=== PATIENT | male | born 1960 | race Caucasian/White ===

== ENCOUNTER → 2024-06-22 06:46 | Outpatient (REF) | payer MEDICARE, OTHER, SELFPAY | LOC: MRI 06:46 | PROVIDERS: ATTENDING PHYSICIAN Family Medicine | DX: M54.32 Sciatica, left side (principal) | CPT/HCPCS: 72148 ==

== ENCOUNTER 2024-11-27 11:41 | Inpatient (IN) | payer MEDICARE, OTHER, SELFPAY ==
[2024-11-27] VITALS (13 sets, daily range): BP systolic 106–156; BP diastolic 65–90; BMI 29.1
[2024-11-27] MEDS: CELEBREX 200 MG PO (12:19)
[2024-11-27] MEDS: TYLENOL 1000 MG PO ×2 (12:19→21:00)
[2024-11-27] MEDS: EMEND 40 MG PO (12:39)
[2024-11-27] MEDS: NORMOSOL-R/PLASMALYTE-A 1000 IV (12:40)
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
--- NOTE | 2024-11-27 17:58 | OR.RPT ---
Operative Report
Operative Report
Date of Surgery 11/27/2024
Surgeon: Rm Skinner
INFORMATION ASSURANCE OFFICER: Leda Pan PA-C served as outreach assistant for this procedure as no qualified resident or fellow was able to be identified
PREOPERATIVE DIAGNOSES:
1. Multilevel lumbar spinal stenosis L2-5
2. Degenerative spondylolisthesis at L4-5.
3. Lumbar spondylosis.
POSTOPERATIVE DIAGNOSES:
Same
PROCEDURE:
1. Posterior spinal decompression consisting of laminectomy at L2, L3, L4, L5.
2. Posterior spinal arthrodesis with local autograft (same incision) and allograft (DBM) L4 - L5.
3. Posterior non segmental instrumentation L4 and L5 (Globus).
4. Transforaminal interbody fusion L4-5 with titanium cage insertion
ANESTHESIA: General endotracheal.
ESTIMATED BLOOD LOSS: 200 mL
COMPLICATIONS: None
DISPOSITION: Stable, extubated to PACU.
INDICATION FOR PROCEDURE: This patient is a 64 year old male who comes in with a chief complaint of low back pain with pain radiating down both legs (L>R). The ability to walk and the increased pain has been quite severe over the past year. He
states hecan only walk about maybe 200 feet. The pain typically is in the back radiating into the buttocks, down the posterior thighs, at times into the calves. He has had physical therapy for this, it has not helped,along with activity
modification. Radiographs reveal severe spondylosis from L3 to L5, there is L4-L5 spondylolisthesis. MRI shows multilevel stenosis, most severe at L2-3, L3-4 and 4-L5 due to ligamentum flavum hypertrophy and facet arthropathy.
As he had failed conservative measures of activity modification, oral medications, injection-type therapy, and continued having subjective, objective and corroborative imaging evidence of neurogenic claudication and axial low back pain with
multilevel spinal stenosis and spondylolisthesis, surgical treatment was offered. The patient understood the benefits, alternatives and risks of the procedure with risks including but not limited to risk of anesthesia, infection, nerve damage, blood
vessel damage, dural tear, blindness, need for further surgery, failure of fusion, failure of instrumentation, failure to relieve symptoms, adjacent level problems. He elected to proceed after undergoing preoperative medical clearance.
DESCRIPTION OF PROCEDURE: The patient was identified in the preoperative holding area. The site of surgery and consent verified with the patient. She was then brought to the Operating Room by the Anesthesia and Orthopedic Services. General
anesthesia was administered. The patient was intubated without difficulty. SOILA and SCD stockings were placed for mechanical DVT prophylaxis as well as a sterilely inserted Beck catheter. @CAPHE@ was then positioned prone onto a Blaine table with
bony prominences well padded. Abdomen was hanging free. @CAPHIS@ back was prepped and draped in the usual sterile standard fashion. A hard stop surgical timeout performed with all members of the Operating Room staff, and 1 gram of IV Ancef given
prior to surgical start.
A midline skin incision was then made over the presumed L2, L3, L4 and L5 spinous processes down through the skin with a knife Bovie cautery down through the lumbodorsal fascia. Hemostasis was achieved. Deep dissection was taken of the bilateral
hemilamina of the presumed L3 to L5 levels. At this point, intraoperative fluoroscopy was used to confirm exposure of the intended levels. Once this was confirmed, further lateral dissection was taken out to the transverse processes of L4 to L5,
again with excellent hemostasis achieved and deep self-retraining retractors placed.
Decompression was then started, first by removal of the spinous processes with the spinous process cutter. A Leksell rongeur used to thin down the lamina and all this bone used harvested local autograft. A 3 mm neural efrain was then used to thin down
the laminae and further down to the level of the ligamentum flavum from L3 and L5. At each respective level the canal space was entered with a use of a microcurette followed by a #2 and a #3 Kerrison rongeur. A central laminectomy was performed from
L5 [address] up to L2.
At this point, bilateral lateral recess decompression was performed at the L2-3,L3-4 and L4-5 levels with a Linnette elevator was used to protect the neural elements at all times. The stenosis was most severe particularly at the L4-5 and an osteotome
was used to perform inferior facetectomy at the L4-5 level to retail helper in the decompression. Following the decompression, the neural elements were noted to reconstitute from the prior areas of compression and neuromonitoring was stable throughout
the entire decompressive procedure.
Instrumentation was then performed consisting of bilateral pedicle screws from L4 to L5. Surgical technique included a starter point with a neural efrain based on anatomic landmarks of the transverse process in the respective pars. A pedicle probe was
then used to create a tract down through the pedicle. Pedicle markers were then used to confirm on AP and lateral fluoroscopic imaging adequate starting point trajectory of these screws. Screws placed and all with excellent purchase and checked on
AP and lateral fluoroscopic imaging to ensure no breaches.
Attention was then turned to the left 4-5foramen. Bipolar cautery used to create excellent hemostasis of the epidural venous plexus. This allowed visualization of the L4-5 disc as well as the traversing L5 root and the exiting L4 root. Care was
taken to preserve the neural elements and a discectomy was performed first with annulotomy with a 15 blade followed by upsizing trial paddle sam and paddle distractors. Bilateral and superior inferior endplates were cleaned of cartilaginous
tissue with straight left and right going angled curettes, as well as straight and up-biting pituitary to remove anymore disc material.
Trial cages were then placed, checked on AP and lateral fluoroscopic imaging to ensure appropriate selection of side. The actual cage was then selected in this evacuated disc space, autograft and allograft packed anteriorly into the disc space,
followed by the cage, which was also packed with bone graft material. The cage was then placed across the midline and expanded until its final torque.
A well-contoured in length sruthi was then placed down on either side, set down with the appropriate tightening instrument. Distraction applied to first to the construct to allow final decompression and checking of the bilateral lateral recess
decompression at L2-3 L3-4 and L4-5 levels, which was sufficient as all traversing nerve roots at all the levels were noted to be free and mobile following the decompression. The efrain was used to decorticate lateral surfaces and transverse
processes between L4 and L5 and remaining autograft and allograft packed here for fusion purposes. Compression was then applied back onto the fusion construct and set screws set down with the appropriate final induction coordination engineer. The wound was then irrigated
with a liter of normal saline, followed by placement of a deep Hemovac drain.
The wound was then closed in a sequential fashion with 0 Vicryl, 2-0 Vicryl, and 3-0 Monocryl for the skin. A dry, sterile dressing was then applied. He was flipped back over supine on the hospital table, extubated without difficulty, had purposeful
movement of all four extremities prior to leaving the Operating Room.
I attest I was present for and performed all jiang and critical aspects of the procedure.
--- NOTE | 2024-11-27 18:46 | SUR.PHASEI ---
Rec'd with HOB mid fowlers, too sleepy to orient at present Hemovac compressed with scant dark seriosnag drainage, hicks to bsd cl yellow urine
--- NOTE | 2024-11-27 19:12 | SUR.PHASEI ---
Arouses with stimuli oriented x 3 by RN, reassured
--- NOTE | 2024-11-27 19:19 | SUR.PHASEI ---
lip care given, very sleepy, vss
--- NOTE | 2024-11-27 19:32 | SUR.PHASEI ---
Remains sleepy, encouraged deep breaths, quickly falls back to sleep, unable to maint SAO2 on RA, c/o discomfort in back and legs, repositioned log rolled on L side, prop. with pillow and pillow between legs, gabby x 5 min
--- NOTE | 2024-11-27 19:49 | SUR.PHASEI ---
More arousable,vss, no c/o at present
--- NOTE | 2024-11-27 20:13 | SUR.PHASEI ---
roberto, no c/o Spoke with
[2024-11-27] MEDS: SENOKOT 17.2 MG PO (21:00)
[2024-11-27] MEDS: LYRICA 75 MG PO (21:00)
[2024-11-27] MEDS: COLACE 100 MG PO (21:09)
[2024-11-27] MEDS: FLOMAX 0.4 MG PO (21:09)
[2024-11-27] MEDS: PEPCID 20 MG PO (21:09)
[2024-11-27] MEDS: MILK OF MAGNESIA 30 ML PO (21:11)
[2024-11-27] MEDS: NORMOSOL-R/PLASMALYTE-A IV (23:11)
--- NOTE | 2024-11-27 23:14 | TRANSFER ---
Received report from RECORDS OFFICER Sivan. Pt received in bed at 2030 s/p L2-5 fusion and L4-5 w/ TLIF. Pt drowsy but arousable to verbal. Lumbar inc w post op dressing CDI, Hemovas intact w sanguinous drainage. FC draining yellow urine. Pt was able to
move all extremities w/o issues. VSS. Call cope within reach, bed in lowest position. Spouse at bedside.
[2024-11-27] MEDS: ROXICODONE 10 MG PO (23:50)
[2024-11-27] MEDS: ANCEF 5 IV (23:51)
[2024-11-28] VITALS (8 sets, daily range): BP systolic 91–142; BP diastolic 59–74; PULSE 9–79; O2SAT 99
[2024-11-28] MEDS: TYLENOL 1000 MG PO ×2 (02:55→08:14)
[2024-11-28] MEDS: NORMOSOL-R/PLASMALYTE-A 1000 IV ×2 (02:55→12:56)
[2024-11-28] MEDS: NORMOSOL-R/PLASMALYTE-A IV (05:33)
[2024-11-28] MEDS: ROXICODONE 10 MG PO (06:25)
--- NOTE | 2024-11-28 08:00 | W.PN.SP ---
Today's Communication / Plan
-
Out of bed ad jeromy with physical therapy for activity training and dispo planning likely home with services.
Check CBC today
Standing lumbar radiograph AP and Lateral before discharge
Continue hemovac to self suction until <60cc/shift
Assessment / Plan
-
POD#1 s/p L2-5 laminectomy, fusion with TLIF L4-5 as expected.
Subjective / Objective
Subjective Data
Patient has movement related incisional pain and developed a migraine headache overnight, which is something that he had related to a remote head trauma. He treats the migraines usually with Excedrin Migraine.
Objective Data
Vital Signs
Temp Pulse Resp BP Pulse Ox
97.6 F 83 16 91/59 97
11/28/24 07:20 11/28/24 07:20 11/28/24 07:20 11/28/24 07:20 11/28/24 07:20
Intake and Output
11/27/24 11/28/24 11/29/24
06:59 06:59 06:59
Intake Total 1070 / 1070
Output Total 1035 / 1035
Balance 35 / 35
Intake:
Oral fluids 720 / 720
IV fluids (Total) 350 / 350
normosol 50 / 50
Output:
Drain Output (Total) 560 / 560
Middle Abdomen Hemovac 560 / 560
Urine, Beck 475 / 475
Physical Exam
-
NAD, AAOx3
5/5 bilateral Q/IP/EHL/TA/GSC
SILT L2-S1
w/wp
[2024-11-28] MEDS: ANCEF 5 IV (08:13)
[2024-11-28] MEDS: COLACE 100 MG PO ×2 (08:13→20:02)
[2024-11-28] MEDS: ZOFRAN 4 MG IV (08:13)
[2024-11-28] MEDS: SENOKOT 17.2 MG PO ×2 (08:13→20:02)
[2024-11-28] MEDS: VITAMIN C 500 MG PO (08:14)
[2024-11-28] MEDS: FLOMAX 0.4 MG PO (08:14)
[2024-11-28] MEDS: LIPITOR 40 MG PO (08:15)
[2024-11-28] MEDS: LYRICA 75 MG PO (08:15)
[2024-11-28 08:54] LABS: Hematocrit 30.5 % (39.0-52.0); Hemoglobin 10.5 g/dL (13.0-18.0)
[2024-11-28 09:29] LABS: Blood Urea Nitrogen 19 mg/dl (9-20); Calcium 7.9 mg/dl (8.4-10.2); Carbon Dioxide 24 mmol/L (22-30); Chloride 104 mmol/L (98-107); Estimated Creatinine Clearance 89 ml/min; Glucose 130 mg/dl (70-99); Potassium 4.2 mmol/L (3.5-5.1); Sodium 137 mmol/L (135-145); eGFR > 60.00
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
--- NOTE | 2024-11-28 10:26 | CM ---
Patient seen at bedside - fabiola d/c by nurse, has hemovac
POD#1 s/p L2-5 laminectomy, fusion with TLIF L4-5
IA completed
CM consult completed. dispo planning/VN
Referral for [facility] entered
Lives with in a 2 story home, 1 step to enter, flight to second floor
PLOF: indepdendent used cane
DME: Cane walker
denies insecurities
PCP: Dr. Ferreira
Pharmacy: [facility] [place]
PLAN: home with [facility]
[2024-11-28] MEDS: FIORICET 1 TAB PO ×2 (11:34→20:06)
--- NOTE | 2024-11-28 12:51 | VNURNOTE ---
Provider Contracting Consultant met with patient and at bedside to discuss [facility] nurse/therapy, visits, schedule and homebound status. Patient is agreeable and understands that visits at home will be 2-3 x per week to assess and teach medical management.
[facility] brochure provided with contact information. Patient is aware that [facility] will contact them for start of care in 1-2 days after discharge from .
[facility] referral completed in [facility].
[2024-11-28] MEDS: ROXICODONE 5 MG PO (13:01)
[2024-11-28] MEDS: COMPAZINE 5 MG PO ×2 (15:49→21:37)
[2024-11-28] MEDS: TYLENOL PO ×2 (15:50→20:07)
[2024-11-28] MEDS: NSS (PRESERVATIVE FREE) 10 ML IV (15:50)
[2024-11-28] MEDS: DECADRON 4 MG IV (15:50)
[2024-11-28] MEDS: PROTONIX IV 40 MG IV (15:50)
[2024-11-28] MEDS: PEPCID 20 MG PO (21:37)
[2024-11-28] MEDS: MILK OF MAGNESIA 30 ML PO (21:37)
[2024-11-29] MEDS: TYLENOL PO (03:00)
[2024-11-29 07:05] VITALS: BP 133/75
[2024-11-29] MEDS: COMPAZINE 5 MG PO (08:19)
[2024-11-29] MEDS: COLACE 100 MG PO (08:19)
[2024-11-29] MEDS: VITAMIN C 500 MG PO (08:20)
[2024-11-29] MEDS: TYLENOL 650 MG PO (08:20)
[2024-11-29] MEDS: FLOMAX 0.4 MG PO (08:20)
[2024-11-29] MEDS: LIPITOR 40 MG PO (08:20)
[2024-11-29] MEDS: SENOKOT 17.2 MG PO (08:21)
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
--- NOTE | 2024-11-29 09:52 | W.DS.TRANS ---
DC Summary - Transport Tank Technician
-
Discharge Instructions:
Sleep Apnea Risk Intermediate
Discharge Diagnosis/Procedures Lumbar stenosis with neurogenic claudication s/p
L2-L5 laminectomy and L4-L5 TLIF with Dr Skinner 02
/12/2024
Diet Regular
Activity As tolerated
Additional Activity No heavy lifting >10 lbs
Driving Restrictions Not until seen by your Dr
Bathing Restrictions OK to shower in 3 days
Other Services VN
Instructions:
Stand-Alone Forms: [facility]
Changes to Home Medications: Yes
Discharge Medications:
DC Medications w/original date entered in [facility]
ascorbic acid (vitamin C) 500 mg tablet (Vitamin C) 500 mg PO DAILY Supplement 11/23/24
aspirin 81 mg capsule 81 mg PO DAILY Blood Clot Prevention/Tx 11/23/24
atorvastatin 40 mg tablet 40 mg PO DAILY High Cholesterol 11/23/24
acetaminophen 325 mg tablet 650 mg (2 x 325 mg) PO Q6H #30 tabs 11/29/24
cvzbaktdxa-qcdbqywoltmlw-egztrqcy 50 mg-325 mg-40 mg tablet 1 tab PO Q6HPRN PRN migraines #10 tabs 11/29/24
docusate sodium 100 mg capsule 100 mg PO BID #30 caps 11/29/24
hydrochlorothiazide 25 mg tablet 25 mg PO DAILY Fluid Retention/Swelling #0 tabs 11/29/24
lisinopril 20 mg tablet 20 mg PO DAILY Blood Pressure #0 tabs 11/29/24
magnesium hydroxide 400 mg/5 mL oral suspension (Milk of Magnesia) 30 ml PO HS #3,780 mL 11/29/24
prochlorperazine maleate 5 mg tablet 5 mg PO TID PRN nausea and vomiting #30 tabs 11/29/24
sennosides 8.6 mg tablet (Addie-yolanda) 17.2 mg (2 x 8.6 mg) PO BID #30 tabs 11/29/24
tizanidine 2 mg tablet 2 mg PO Q8H PRN muscle spasms #30 tabs 11/29/24
tramadol 50 mg tablet 50 mg PO Q6HPRN PRN moderate-severe pain #30 tabs 11/29/24
Home Medication Changes
acetaminophen 325 mg tablet 650 mg (2 x 325 mg) PO Q6H #30 tabs 11/29/24
jazjfmbupz-kvcronnrwinvh-wxprphcj 50 mg-325 mg-40 mg tablet 1 tab PO Q6HPRN PRN migraines #10 tabs 11/29/24
docusate sodium 100 mg capsule 100 mg PO BID #30 caps 11/29/24
magnesium hydroxide 400 mg/5 mL oral suspension (Milk of Magnesia) 30 ml PO HS #3,780 mL 11/29/24
prochlorperazine maleate 5 mg tablet 5 mg PO TID PRN nausea and vomiting #30 tabs 11/29/24
sennosides 8.6 mg tablet (Addie-yolanda) 17.2 mg (2 x 8.6 mg) PO BID #30 tabs 11/29/24
tizanidine 2 mg tablet 2 mg PO Q8H PRN muscle spasms #30 tabs 11/29/24
tramadol 50 mg tablet 50 mg PO Q6HPRN PRN moderate-severe pain #30 tabs 11/29/24
Pending Results: No
[2024-11-29 10:00] VITALS: BP 126/81; PULSE 106
--- NOTE | 2024-11-29 11:05 | CM ---
IMM explained & signed. In chart
[facility] liaison notified. Accepted patient
PLAN: Home with [facility], to transport
[2024-11-29 12:39] VITALS: BP 141/81; PULSE 90; O2SAT 97
[2024-11-29 12:44] VITALS: BP 138/74
== END 2024-11-29 14:16 | disposition home health service (06) | DRG 451 ==
LOC: 2 SOUTH 11:41
PROVIDERS: Physician Assistant; ADMITTING PHYSICIAN Orthopaedic Surgery
PROC: 00NY0ZZ Release Lumbar Spinal Cord, Open Approach (ICD-10-PCS; 2024-11-27)
PROC: 0SG00AJ Fusion of Lumbar Vertebral Joint with Interbody Fusion Device, Posterior Approach, Anterior Column, Open Approach (ICD-10-PCS; 2024-11-27)
DX: M48.062 Spinal stenosis, lumbar region with neurogenic claudication (principal); D62 Acute posthemorrhagic anemia; M43.16 Spondylolisthesis, lumbar region; M47.816 Spondylosis without myelopathy or radiculopathy, lumbar region; G43.909 Migraine, unspecified, not intractable, without status migrainosus; I10 Essential (primary) hypertension; K59.09 Other constipation; N40.1 Benign prostatic hyperplasia with lower urinary tract symptoms; T40.2X5A Adverse effect of other opioids, initial encounter; R11.0 Nausea
CPT/HCPCS: 72100; 76000; 80048; 85014; 85018; 86850; 86900; 86901; 87070; 97162; 97165; 97530; 97535

== ENCOUNTER 2024-12-03 03:11 | Emergency (ER) | payer MEDICARE, OTHER, SELFPAY ==
[2024-12-03] VITALS (14 sets, daily range): BP systolic 135–167; BP diastolic 83–103; BMI 30.3
--- NOTE | 2024-12-03 03:27 | ED.GENMED ---
History of Present Illness
<Cody Quintana, DO - Last Filed: 12/03/24 22:44>
General
Chief Complaint: Back Pain
Source: patient, records and ambulance crew
Exam Limitations: none
Time Seen by Provider: 12/03/24 03:27
Nursing documentation reviewed up to this point in time: agreed with
History of Present Illness
History of Present Illness:
Pleasant 64-year-old male presents to the emergency department with bilateral leg swelling and tingling. He is status post lumbar spinal fusion by Dr. Skinner of [facility] orthopedics. The surgery was performed on Wednesday. Since the surgery he has not
been taking his normal medications including hydrochlorothiazide. Patient has been sleeping in a lazy boy chair. He was instructed to try to ambulate up to 5 minutes a day. He was unable to do so. He has also kept his compression stockings in
place since the surgery. His removed them yesterday and symptoms began shortly thereafter. Patient denied chest pain but states that while in the emergency department, he had a small episode of fleeting chest pain.
Vital signs are stable. Patient not hypoxic
Nursing note reviewed. I agree with nursing documentation up to this point in time.
Home Meds and allergies reviewed.
NUMBER AND COMPLEXITY OF PROBLEMS ADDRESSED AT THE ENCOUNTER
� Chronic conditions affecting care: Acute on chronic back pain, hypertension, hyperlipidemia
� Acute Exacerbation and/or Progression of Chronic Illness: Acute on chronic low back pain.
� Differential Diagnosis includes: Postoperative pain, return of chronic pain, rhabdomyolysis
AMOUNT AND/OR COMPLEXITY OF DATA TO BE REVIEWED AND ANALYZED
I performed an independent evaluation of the following and my interpretation is:
EKG: EKG which is physically scanned into the chart shows normal sinus rhythm rate 85 with normal intervals, normal axis. Right bundle branch block present. OR doubles 138 ms. No evidence of acute ischemia present. No
previous EKG available for comparison.
Pulse Ox: Not Hypoxic
Machine Umbrella Tipper: Sinus Rhythm
CT:
X-rays:
Ultrasound: Ultrasound of the bilateral lower extremities pending.
Laboratory Studies: Elevated troponin, 0.053. Repeat troponin pending for 615. proBNP is normal at 398.
Other:
Review of other/old records: Operative report by Dr. Skinner which showed multilevel lumbar spinal stenosis L2-L5, degenerative spondylolisthesis at L4-L5, moderate lumbar spondylosis. Patient underwent a posterior spinal decompression
with laminectomy at L2-3-4 and 5.'s posterior spinal arthrodesis with local autograft, posterior nonsegmental instrumentation L4-L5 and transforaminal interbody fusion L4-5.
Clinical information was obtained by an independent historian: EMS gave report
Prescriptions/Medications Considered but not given:
Further testing considered but not performed:
RISK OF COMPLICATIONS AND/OR MORBIDITY OR MORTALITY OF PATIENT MANAGEMENT
Social determinants of health affecting care: Good Social Support
Discussion with other providers: Spoke with Dr. Lindsey, orthopedics who recommended discharge with follow-up should second troponin and ultrasound negative.
Escalation of care including admission/observation vs risk of discharge considered:
CRITICAL CARE NOTE: Not applicable
Total Time (exclusive of procedures):
Update:
Past History
<Cody Quintana, - Last Filed: 12/03/24 22:44>
Past History
ED Past Medical History: GERD, HTN and Hypercholesterolemia
ED Past Surgical History: Orthopedic
Social History
Tobacco: Non-smoker
Personal:
Phy Exam
<Cody Quintana, DO - Last Filed: 12/03/24 22:44>
Physical Exam
Physical Exam:
Physical Exam
Vital signs and allergy list reviewed and agreed with.
GENERAL: Alert , in minimal apparent distress
EYE: pupils equal, EOMI, anicteric
NECK: Supple, no significant adenopathy. No masses. Trachea midline
ENT: Oropharynx is clear, mmm.
CARDIAC: Regular rate and rhythm . No M/R/G
LUNGS: Clear breath sounds bilaterally, no acute respiratory distress, no wheezes/rales/rhonchi
ABDOMEN: Soft, without focal tenderness, no r/g, no cvat. Normal BSx4q
NEUROLOGICAL: Alert and oriented, no focal neuro deficits
SKIN: Warm and dry, skin intact.
MUSCULOSKELETAL: No edema, well perfused. Moves all 4 extremities
PSYCH: Normal and appropriate interaction.
Course
<Cody Quintana, DO - Last Filed: 12/03/24 22:44>
Orders/Labs/Results
Orders:
Orders
12/03/24 03:15
Electrocardiogram (*1) Urgent
Reason for Study: Palpitations
Electrocardiogram (*1) Urgent
Reason for Study: Palpitations
12/03/24 03:16
EKG- Treatment ONCE
12/03/24 03:26
Complete Blood Count/With Diff Urgent
Comprehensive Metabolic Panel Urgent
Creatine Phosphokinase Urgent
Comment: ADD ON
NT-proBNP Urgent
PTT Urgent
Prothrombin Time Urgent
Troponin I Urgent
12/03/24 04:41
Tizanidine [Zanaflex] 2 mg PO NOW STA
Tramadol HCl [Ultram] 50 mg PO NOW STA
12/03/24 06:15
Troponin I Urgent
12/03/24 06:32
US Legs, Bilateral [US Periph Venous LOWER Ext Jacques] Urgent
Comment:
Reason For Exam: pain, swelling s/p surgery
12/03/24 06:37
Add On- LAB Urgent
Tests Added?: cpk
12/03/24 06:46
CT Chest PE Study Urgent
Comment:
Reason For Exam: chest pain, s/p surgery
12/03/24 07:45
Electrocardiogram (*1) Urgent
Reason for Study: Chest Pain
EKG- Treatment ONCE
12/03/24 10:43
Consult Cardiology [CARDIOLOGY CONSULT] Urgent
Consulting Provider: Inga Castillo
Was physician already notified: Yes
12/03/24 10:55
Atorvastatin [Lipitor] 40 mg PO NOW STA
Hydrochlorothiazide [Oretic] 25 mg PO NOW STA
Lisinopril [Zestril] 20 mg PO NOW STA
12/03/24 12:18
Tramadol HCl [Ultram] 50 mg PO NOW STA
Abnormal Lab Results
12/03/24 12/03/24
03: 06:15
RBC 3.15 L 10^6/uL
(4.70-6.10)
Hgb 9.7 L g/dL
(13.0-18.0)
Hct 28.4 L %
(39.0-52.0)
Abs Immat Gran (auto) 0.1 H 10^3/uL
(0-0.05)
Absolute Monos (auto) 1.0 H 10^3/uL
(0.1-0.6)
Immature Gran % 0.6 H %
(0-0.5)
Lymphocytes % 15.0 L %
(20.5-51.1)
Monocytes % 13.3 H %
(1.7-9.3)
Sodium 132 L mmol/L
(135-145)
Chloride 95 L mmol/L
(98-107)
Glucose 103 H mg/dl
(70-99)
Troponin I 0.053 H* ng/ml 0.065 H* ng/ml
Total Protein 6.2 L g/dl
(6.3-8.2)
12/03/24 03:26
12/03/24 03:26
Vital Signs
Initial and Last Documented VS:
Initial Vital Signs
BP Pulse Ox
160/103 96
12/03/24 03:13 12/03/24 03:13
Last Documented Vital Signs
Temp Pulse Resp BP Pulse Ox
98.2 F 90 24 150/89 97
12/03/24 10:33 12/03/24 13:55 12/03/24 13:55 12/03/24 13:55 12/03/24 13:45
<Rm Tavares, - Last Filed: 12/03/24 13:03>
Orders/Labs/Results
Orders:
Orders
12/03/24 03:15
Electrocardiogram (*1) Urgent
Reason for Study: Palpitations
Electrocardiogram (*1) Urgent
Reason for Study: Palpitations
12/03/24 03:16
EKG- Treatment ONCE
12/03/24 03:26
Complete Blood Count/With Diff Urgent
Comprehensive Metabolic Panel Urgent
Creatine Phosphokinase Urgent
Comment: ADD ON
NT-proBNP Urgent
PTT Urgent
Prothrombin Time Urgent
Troponin I Urgent
12/03/24 04:41
Tizanidine [Zanaflex] 2 mg PO NOW STA
Tramadol HCl [Ultram] 50 mg PO NOW STA
12/03/24 06:15
Troponin I Urgent
12/03/24 06:32
US Legs, Bilateral [US Periph Venous LOWER Ext Jacques] Urgent
Comment:
Reason For Exam: pain, swelling s/p surgery
12/03/24 06:37
Add On- LAB Urgent
Tests Added?: cpk
12/03/24 06:46
CT Chest PE Study Urgent
Comment:
Reason For Exam: chest pain, s/p surgery
12/03/24 07:45
Electrocardiogram (*1) Urgent
Reason for Study: Chest Pain
EKG- Treatment ONCE
12/03/24 10:43
Consult Cardiology [CARDIOLOGY CONSULT] Urgent
Consulting Provider: Inga Castillo
Was physician already notified: Yes
12/03/24 10:55
Atorvastatin [Lipitor] 40 mg PO NOW STA
Hydrochlorothiazide [Oretic] 25 mg PO NOW STA
Lisinopril [Zestril] 20 mg PO NOW STA
12/03/24 12:18
Tramadol HCl [Ultram] 50 mg PO NOW STA
Abnormal Lab Results
12/03/24 12/03/24
03: 06:15
RBC 3.15 L 10^6/uL
(4.70-6.10)
Hgb 9.7 L g/dL
(13.0-18.0)
Hct 28.4 L %
(39.0-52.0)
Abs Immat Gran (auto) 0.1 H 10^3/uL
(0-0.05)
Absolute Monos (auto) 1.0 H 10^3/uL
(0.1-0.6)
Immature Gran % 0.6 H %
(0-0.5)
Lymphocytes % 15.0 L %
(20.5-51.1)
Monocytes % 13.3 H %
(1.7-9.3)
Sodium 132 L mmol/L
(135-145)
Chloride 95 L mmol/L
(98-107)
Glucose 103 H mg/dl
(70-99)
Troponin I 0.053 H* ng/ml 0.065 H* ng/ml
Total Protein 6.2 L g/dl
(6.3-8.2)
12/03/24 03:26
12/03/24 03:26
Vital Signs
Initial and Last Documented VS:
Initial Vital Signs
BP Pulse Ox
160/103 96
02/09/25 03:13 12/03/24 03:13
Last Documented Vital Signs
Temp Pulse Resp BP Pulse Ox
98.2 F 90 24 150/89 97
12/03/24 10:33 12/03/24 13:55 12/03/24 13:55 12/03/24 13:55 12/03/24 13:45
<Cody Quintana, DO - Last Filed: 12/03/24 22:44>
*Critical Care Note
Total Time (30-74mins, 75-104mins- exclusive of procedures): Not Applicable
<Rm Tavares DO - Last Filed: 12/03/24 13:03>
Update Note
Update Note:
Patient reassessed. Presented for burning in his legs as well as swelling. Patient on my assessment denies any chest pain or shortness of breath. Feels better on my assessment. In light of his troponin seen by cardiology in the emergency
department. Cleared from a cardiac perspective as per Dr. Castillo. DVT negative. Okay for discharge
ED Attending Note
<Cody Quintana DO - Last Filed: 12/03/24 22:44>
-
Portions of this chart may have been created with voice recognition software.� Occasional wrong word or��sound alike� substitutions may have occurred due to the inherent limitations of voice recognition software.
Discharge Plan
Departure
Patient Disposition: Home (Routine Discharge)
Date of Disposition: 12/03/24
Time of Disposition: 13:02
Patient with high blood pressure during this ER visit?: Yes
Condition: Fair
Discharge Problem:
Elevated troponin, Radiculopathy
Instructions: Radiculopathy (DC)
Prescriptions:
No Action
atorvastatin 40 mg tablet
40 mg PO DAILY
ascorbic acid (vitamin C) [Vitamin C] 500 mg Tablet
500 mg PO DAILY
aspirin 81 mg Capsule
81 mg PO DAILY
Rx Instructions:
on hold until 12/02/24
prochlorperazine maleate 5 mg Tablet
5 mg PO TID PRN (Reason: nausea and vomiting) Qty: 30 0RF
docusate sodium 100 mg Capsule
100 mg PO BID Qty: 30 0RF
quoefcjxxu-xzqozfqykyfpg-umxv 50-325-40 mg Tablet
1 tab PO Q6HPRN PRN (Reason: migraines) Qty: 10 0RF
Rx Instructions:
Do NOT exceed >4000 mg of Tylenol daily while on this medication.
magnesium hydroxide [Milk of Magnesia] 400 mg/5 mL Suspension
30 ml PO HS Qty: 3780 0RF
sennosides [Addie-yolanda] 8.6 mg Tablet
17.2 mg PO BID Qty: 30 0RF
acetaminophen 325 mg Tablet
650 mg PO Q6H Qty: 30 0RF
Rx Instructions:
DO NOT exceed >4000 mg daily while taking Fioricet as needed.
tramadol 50 mg tablet
50 mg PO Q6HPRN PRN (Reason: moderate-severe pain) Qty: 30 0RF
Rx Instructions:
Dx lami. Ongoing therapy
1 tab moderate pain or 2 if pain severe
tizanidine 2 mg tablet
2 mg PO Q8H PRN (Reason: muscle spasms ) Qty: 30 0RF
Rx Instructions:
Prescribed by Halle Pan PA-C.
Caution with tramadol - can cause drowsiness.
lisinopril 20 mg tablet
20 mg PO DAILY Qty: 0 0RF
Rx Instructions:
HOLD IF systolic blood pressure <130 while on Tramadol.
hydrochlorothiazide 25 mg tablet
25 mg PO DAILY Qty: 0 0RF
Rx Instructions:
HOLD if systolic blood pressure <130 while on Tramadol.
Referrals:
Rm Skinner MD [Active] - Next open appointment
Kalia Hammond MD [Family Provider] -
Activity Restrictions/Additional Instructions:
Please follow-up with your doctor next 2 to 3 days. Please have your doctor follow-up on your results. Return immediately for chest pain, shortness of breath, fevers, leg weakness, urinary incontinence, bowel incontinence or any other concerns.
Interventions
Interventions:
*Risk Screen - Suicide Last Done: 12/03/24 14:33
*General Assessment Last Done: 12/03/24 03:18
*Neglect/Abuse Screening Last Done: 12/03/24 03:18
ED- Fall Risk Assessment Last Done: 12/03/24 14:32
*ED COVID-19 Vaccine History Last Done: 12/03/24 03:30
*Nursing Disposition Last Done: 12/03/24 14:32
ED-Musculoskeletal Assessment Last Done: 12/03/24 04:30
Discharge Date and Time
Discharge Date/Time: 12/03/24 14:33
Print Language: FIJIAN
[2024-12-03 03:49] LABS: % Basophils 0.5 % (0-2); % Eosinophils 1.7 % (0-6); % Immature Granulocytes 0.6 % (0-0.5); % Monocytes 13.3 % (1.7-9.3); % Neutrophils 68.9 % (42.2-75.2); Absolute Eosinophils 0.1 10^3/uL (0-0.7); Absolute Immature Granulocytes 0.1 10^3/uL (0-0.05); Absolute Lymphocytes 1.2 10^3/uL (1.2-3.4); Absolute Neutrophils 5.4 10^3/uL (1.4-6.5); Hematocrit 28.4 % (39.0-52.0); Hemoglobin 9.7 g/dL (13.0-18.0); Mean Corp Hgb Conc. 34.2 g/dL (33.0-37.0); Mean Corpuscular Hgb 30.8 pg (27.0-31.0); Mean Corpuscular Volume 90.2 fL (80.0-94.0); Mean Platelet Volume 9.4 fL (7.4-10.4); Nucleated Red Blood Cells % 0 % (-); Platelet Count 318 10^3/uL (130-400); Red Blood Cell Count 3.15 10^6/uL (4.70-6.10); Red Cell Dist. Width 11.9 % (11.5-14.5); White Blood Cell Count 7.8 10^3/uL (4.8-10.8)
[2024-12-03 03:52] LABS: PT 13.5 Sec (11.4-14.6)
[2024-12-03 03:53] LABS: APTT 29.9 Sec (23.4-35.0)
[2024-12-03 04:04] LABS: ALT (SGPT) 44 U/L (0-50); AST (SGOT) 45 U/L (17-59); Albumin 3.9 g/dl (3.5-5.0); Alkaline Phosphatase 64 U/L (38-126); Blood Urea Nitrogen 16 mg/dl (9-20); Carbon Dioxide 25 mmol/L (22-30); Chloride 95 mmol/L (98-107); Glucose 103 mg/dl (70-99); Potassium 3.5 mmol/L (3.5-5.1); Sodium 132 mmol/L (135-145); Total Bilirubin 0.9 mg/dl (0.2-1.3); Total Protein 6.2 g/dl (6.3-8.2); eGFR > 60.00
[2024-12-03 04:26] LABS: NT-proBNP 398 pg/ml; Troponin I 0.053 ng/ml
[2024-12-03] MEDS: ZANAFLEX 2 MG PO (04:49)
[2024-12-03] MEDS: ULTRAM 50 MG PO ×2 (04:49→13:13)
[2024-12-03 07:11] LABS: Creatine Phosphokinase 122 U/L (55-170)
[2024-12-03 07:15] LABS: Troponin I 0.065 ng/ml
[2024-12-03] MEDS: LIPITOR 40 MG PO (11:19)
[2024-12-03] MEDS: ORETIC 25 MG PO (11:20)
[2024-12-03] MEDS: ZESTRIL 20 MG PO (11:20)
--- NOTE | 2024-12-03 12:11 | EDRN ---
Pt ambulating w/ walker to BR at this time.
--- NOTE | 2024-12-03 13:00 | EDRN ---
Flight Readiness Technician in to see pt.
== END 2024-12-03 14:33 | disposition home or self-care (01) ==
LOC: EMR 03:11
PROVIDERS: CONSULT PHYSICIAN Internal Medicine Cardiovascular Disease; EMERGENCY PHYSICIAN Student in an Organized Health Care Education/Training Program; FAMILY PHYSICIAN Family Medicine
DX: R79.89 Other specified abnormal findings of blood chemistry (principal); M54.10 Radiculopathy, site unspecified; R22.43 Localized swelling, mass and lump, lower limb, bilateral; E78.00 Pure hypercholesterolemia, unspecified; I45.10 Unspecified right bundle-branch block; K21.9 Gastro-esophageal reflux disease without esophagitis; I10 Essential (primary) hypertension; Z91.148 Patient's other noncompliance with medication regimen for other reason; Z98.1 Arthrodesis status; Z98.890 Other specified postprocedural states
CPT/HCPCS: 99284; 71275; 80053; 82550; 83880; 84484; 85025; 85610; 85730; 93005; 93970; Q9967

== ENCOUNTER 2025-07-26 16:28 | Emergency (ER) | payer MEDICARE, OTHER, SELFPAY ==
[2025-07-26 16:30] VITALS: BP 132/77
--- NOTE | 2025-07-26 19:22 | ED.GENMED ---
History of Present Illness
General
Chief Complaint: Fall
Source: patient
Exam Limitations: none
Time Seen by Provider: 07/26/25 19:13
History of Present Illness
History of Present Illness:
65yo right hand dominant male with a history of hypertension, hyperlipidemia, and prior L labrum repair about 7 years ago presenting with his for evaluation after a fall about 4 hours ago. Patient was moving a Halloween decorations inside and
was walking when he missed a step. He fell directly on his left shoulder. He denies any head strike or loss of consciousness. His only current complaint is left shoulder pain. He denies any headache, dizziness, vomiting, neck pain. He does not
take any blood thinners. Tdap up to date.
Past History
Past History
ED Past Medical History: GERD, HTN and Hypercholesterolemia
ED Past Surgical History: Orthopedic
Social History
Tobacco: Non-smoker
Personal:
Phy Exam
General Physical Exam
General Presentation: well appearing and no apparent distress
General Skin: warm and dry
General Habitus: normal
General Mental: alert
ENT Exam
ENT Exam: normocephalic and other (No external signs of head trauma. No cervical spine tenderness.)
Eye Exam
Eye Exam: PERRL
Pulmonary Exam
Pulmonary Exam: lungs clear, no respiratory distress, no rales, no crackles, no rhonchi and no wheezing
Neurological Exam
Neurological Exam: alert
Antony Coma Scale
Eye Opening: Spontaneous
Verbal Response: Oriented
Motor Response: Obeys Commands
GCS Total Score: 15
Musculoskeletal Exam
Musculoskeletal Exam: other (L shoulder: No deformity noted. +Generalized tenderness. ROM decreased 2/2 pain. 2+ radial pulse.)
Skin Exam
Skin Exam: normal color, warm/dry and other (Abrasions noted to L forearm)
Psychiatric Exam
Psychiatric Exam: normal mood/affect
Course
Orders/Labs/Results
Orders:
Orders
07/26/25 16:35
CR Shoulder - Left Min 2 View* Urgent
Comment:
Reason For Exam: fall w/ pain
07/26/25 19:21
Ketorolac [Toradol] 30 mg IM NOW STA
Oxycodone/Acetaminophen [Percocet 5/325] 1 tablet PO NOW STA
Vital Signs
Initial and Last Documented VS:
Initial Vital Signs
Temp Pulse Resp BP Pulse Ox
98.4 F 87 18 132/77 94
07/26/25 16:30 07/26/25 16:30 07/26/25 16:30 07/26/25 16:30 07/26/25 16:30
Last Documented Vital Signs
Temp Pulse Resp BP Pulse Ox
98.4 F 87 18 132/77 94
07/26/25 16:30 07/26/25 16:30 07/26/25 16:30 07/26/25 16:30 07/26/25 19:23
MDM/Problems Addressed
Differential Diagnosis Includes:
65yoM here with L shoulder pain after a mechanical fall directly on L shoulder. Denies head injury. VSS. He is awake, alert, with a GCS of 15. No deformity noted to L shoulder. ROM decreased. LUE is neurovascularly intact. Differential diagnosis
includes but is not limited to: fracture, dislocation, sprain, AC separation, rotator cuff tear
Left shoulder x-rays obtained which reveal an age-indeterminate rotator cuff tear with superior migration of the humeral head. No evidence of fracture or dislocation. Patient has a sling at home that he can use as needed. Supportive care
discussed and patient advised to follow-up with orthopedics for further care. Patient discharged in stable condition.
*Pulse Oximetry
SaO2: 94
Oxygen Mode of Delivery: Room air
Patient hypoxic: no
*Critical Care Note
Total Time (30-74mins, 75-104mins- exclusive of procedures): Not Applicable
ED Attending Note
-
Portions of this chart may have been created with voice recognition software.� Occasional wrong word or��sound alike� substitutions may have occurred due to the inherent limitations of voice recognition software.
Discharge Plan
Departure
Patient Disposition: Home (Routine Discharge)
Date of Disposition: 07/26/25
Time of Disposition: 19:23
Patient with high blood pressure during this ER visit?: No
Discharge Problem:
Injury of left shoulder
Instructions: Rotator cuff injury
Prescriptions:
No Action
atorvastatin 40 mg tablet
40 mg PO DAILY
ascorbic acid (vitamin C) [Vitamin C] 500 mg Tablet
500 mg PO DAILY
aspirin 81 mg Capsule
81 mg PO DAILY
Rx Instructions:
on hold until 12/02/24
prochlorperazine maleate 5 mg Tablet
5 mg PO TID PRN (Reason: nausea and vomiting) Qty: 30 0RF
docusate sodium 100 mg Capsule
100 mg PO BID Qty: 30 0RF
yiuipakbti-trblihyaoqwut-dzmb 50-325-40 mg Tablet
1 tab PO Q6HPRN PRN (Reason: migraines) Qty: 10 0RF
Rx Instructions:
Do NOT exceed >4000 mg of Tylenol daily while on this medication.
magnesium hydroxide [Milk of Magnesia] 400 mg/5 mL Suspension
30 ml PO HS Qty: 3780 0RF
sennosides [Addie-yolanda] 8.6 mg Tablet
17.2 mg PO BID Qty: 30 0RF
acetaminophen 325 mg Tablet
650 mg PO Q6H Qty: 30 0RF
Rx Instructions:
DO NOT exceed >4000 mg daily while taking Fioricet as needed.
tramadol 50 mg tablet
50 mg PO Q6HPRN PRN (Reason: moderate-severe pain) Qty: 30 0RF
Rx Instructions:
Dx lami. Ongoing therapy
1 tab moderate pain or 2 if pain severe
tizanidine 2 mg tablet
2 mg PO Q8H PRN (Reason: muscle spasms ) Qty: 30 0RF
Rx Instructions:
Prescribed by Halle Pan PA-C.
Caution with tramadol - can cause drowsiness.
lisinopril 20 mg tablet
20 mg PO DAILY Qty: 0 0RF
Rx Instructions:
HOLD IF systolic blood pressure <130 while on Tramadol.
hydrochlorothiazide 25 mg tablet
25 mg PO DAILY Qty: 0 0RF
Rx Instructions:
HOLD if systolic blood pressure <130 while on Tramadol.
Activity Restrictions/Additional Instructions:
X-rays today do not show any fracture or dislocation but there is evidence of a rotator cuff injury.
Wear sling as needed for comfort. Apply ice to affected area.
Please call tomorrow to schedule a follow-up appointment with Dr. Gamble's office. Return to the ER with any new or worsening symptoms.
Interventions
Interventions:
*Risk Screen - Suicide Last Done: 07/26/25 16:34
*General Assessment Last Done: 07/26/25 16:34
*Neglect/Abuse Screening Last Done: 07/26/25 16:34
*ED COVID-19 Vaccine History Last Done: 07/26/25 16:34
*ED Influenza Vaccine History Last Done: 07/26/25 16:34
Discharge Date and Time
Print Language: INDIAN
[2025-07-26] MEDS: PERCOCET 5/325 1 TABLET PO (19:58)
[2025-07-26] MEDS: TORADOL 30 MG IM (19:59)
== END 2025-07-26 20:08 | disposition home or self-care (01) ==
LOC: EMR 16:28
PROVIDERS: EMERGENCY PHYSICIAN Emergency Medicine; FAMILY PHYSICIAN Family Medicine
DX: S49.92XA Unspecified injury of left shoulder and upper arm, initial encounter (principal); W19.XXXA Unspecified fall, initial encounter; E78.00 Pure hypercholesterolemia, unspecified; I10 Essential (primary) hypertension
CPT/HCPCS: 96372; 99284; 73030